=== PATIENT | female | born 1995 | race Caucasian/White ===

== ENCOUNTER 2016-11-16 12:49 | Emergency (ER) | payer OTHER ==
[2016-11-16 12:58] VITALS: BP 130/84
--- NOTE | 2016-11-16 13:25 | ERNOTE ---
Back Pain ER HPI Date of Service: 11/16/16 Presenting Symptoms: injury/pain to back Time Seen by Provider: 11/16/16 12:58 Source: patient, RN notes reviewed Exam Limitations: no limitations Immunizations: IMMUNIZATION HX Immunizations Up to Date Yes History of Influenza Vaccine No Hx Pneumococcal Vaccination No Allergies/Adverse Reactions: Allergies No Known Allergies Allergy (Verified 11/16/16 12:57) Home Medications: HOME MEDICATIONS Prenat Vit Comb.10/Iron/FA/Dha 11/16/16 [Last Taken Unknown] Narrative: 20 y/o female ambulatory to the ED for pain in her right lower back that radiates down her leg. This began 3 days ago without incident. 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 She is approx 12 weeks with her first child. She has had pain in this area in the past. Quality/Severity: Reports: moderate, aching Location of pain: Reports: lower back, radiating to rt thigh/leg Activities at Onset: Reports: none Recent Injury?: Reports: no Possible Precipitating Factor: Reports: lifting, turning/bending Modifying Factors - (Improves): Reports: nothing Modifying Factors - (Worsens): Reports: nothing Associated Symptoms: Denies: fever/chills, sweating, constipation/incontinence, nausea/vomiting, problems urinating, difficulty walking, lightheadedness, numbess/weakness in legs Prior Treament: Reports: similar symptoms before Review of Systems - Review of Systems Constitutional: Absent: recent illness, fever, chills, fatigue, malaise EYE: Present: no symptoms reported ENT: Present: no symptoms reported Respiratory: Absent: shortness of breath, cough Cardiology: Absent: chest pain, edema Gastrointestinal/Abdominal: Absent: nausea, abdominal pain Genitourinary: Absent: dysuria, hematuria Musculoskeletal: Present: back pain. Absent: neck pain, joint pain, joint swelling Skin: Absent: rash, lesions Neurological: Absent: weakness, numbness, tingling Endocrine: Present: no symptoms reported Hematologic/Lymphatic: Present: no symptoms reported Psych: Present: no symptoms reported - Patient's Past Medical History Patient History - Medical: Anxiety, Depression, Migraines Patient History - Cardiac/Respiratory: Asthma Patient History - Cancer: No Hx of Cancer Patient History - Surgical Procedures: Other Patient History - Other: None LMP (females 10-50): LMP (Calendar): 09/12/16 - Family History Mother Family History - Medical: History Unknown - Social History Living Situations: home Abuse History: No History of abuse Psych History: No pertinent hx Smoking Status: Never smoker Alcohol Use: none Drug Use: marijuana - Immunizations Immunizations Up to Date: Yes Hx Pneumococcal Vaccination: No History of Influenza Vaccine: No Physical Exam - Physical Exam General Appearance: Present: wd/wn, alert, no apparent distress Respiratory: Present: no respiratory distress, normal breath sounds, no accessory muscle use, lungs clear Cardiovascular/Chest: Present: regular rate, rhythm, no murmur, normal peripheral pulses Back Exam: Present: normal range of motion, no CVA tenderness, no vertebral tenderness, other - Mild tenderness in right lumbar/sacral paraspinal muscle region Extremity Exam: Present: normal inspection, normal range of motion, no edema Neurological Exam: Present: alert, oriented, normal mood/affect, no motor/ sensory deficits DTR: N=norm/NB=norm/brisk/A=abs/DD=dull/dimin/HC=hyperactive: Knee (R): Normal, Knee (L): Normal Skin Exam: Present: normal color, warm/dry ED Progress - Vital Signs Patient's Vital Signs:: I have reviewed the patient's vital signs. Vital Signs: Vital Signs 11/16/16 12:54 Temperature 36.4 C L Pulse Rate 79 Respiratory 16 Rate Blood Pressure 130/84 O2 Sat by Pulse 100 Oximetry - Progress/Reassessment Chief Complaint: Back Pain Progress:: Unchanged Departure Clinical Impression: Sciatica of right side, Low back pain during in first trimester - Departure Disposition: Home Follow Up Needed Condition: Good Instructions: Sciatica, [id number] Additional Instructions: Gentle stretching Tylenol for pain Ice/heat to sore area Stay active
== END 2016-11-16 13:20 | disposition home or self-care (01) ==
LOC: ER 12:49
DX: O26.891 Other specified pregnancy related conditions, first trimester (principal); M54.5 Low back pain; M54.31 Sciatica, right side; Z3A.12 12 weeks gestation of pregnancy